=== PATIENT | female | born 1990 | race Hispanic/Latino ===

== ENCOUNTER 2025-03-22 21:13 | Emergency (ER) | payer BC, OTHER ==
[~2025-03-22] VITALS: Ht 160 cm; Wt 106.1 kg
[2025-03-22] MEDS: morPHINE 4 MG SYG IVP ONE (21:30)
[2025-03-22 21:49] LABS: BASOPHILS # (AUTO) 0.04 K/uL (0.00-0.20); BASOPHILS % (AUTO) 0.3 % (0.0-5.0); EOSINOPHILS # (AUTO) 0.09 K/uL (0.00-0.70); EOSINOPHILS % (AUTO) 0.8 % (0.0-8.0); HEMATOCRIT 34.9 % (36-48); IMMATURE GRANULOCYTE ABSOLUTE 0.04 K/uL (0-1); LYMPHOCYTES # (AUTO) 1.7 K/uL (1.0-4.8); LYMPHOCYTES % (AUTO) 14.5 % (21.0-51.0); MEAN CORPUSCULAR HEMOGLOBIN 22.7 pg (27.0-33.0); MEAN CORPUSCULAR HGB CONC 30.4 g/dL (32.0-36.0); MEAN CORPUSCULAR VOLUME 74.9 fL (79-99); MONOCYTES # (AUTO) 0.7 K/uL (0.1-1.0); MONOCYTES % (AUTO) 6.2 % (3.0-13.0); NEUTROPHILS # (AUTO) 9.2 K/uL (1.8-7.7); NEUTROPHILS % (AUTO) 77.9 % (40.0-77.0); PLATELET COUNT (AUTO) 341 K/uL (130-400); RED BLOOD CELL COUNT(AUTO) 4.66 MIL/uL (4.00-5.50); RED CELL DISTRIBUTION WIDTH 16.4 % (11.0-15.5); WHITE BLOOD COUNT (AUTO) 11.8 K/uL (4.8-10.8)
[2025-03-22 21:56] LABS: CREATININE 0.5 mg/dL (0.5-1.0); POTASSIUM 3.6 mmol/L (3.5-5.1)
[2025-03-22 22:10] LABS: APPEARANCE,URINE CLOUDY (CLEAR); BILIRUBIN,URINE NEGATIVE (NEGATIVE); COLOR,URINE YELLOW (YELLOW); GLUCOSE, URINE (UA) NEGATIVE (NEGATIVE); KETONES,URINE NEGATIVE (NEGATIVE); LEUKOCYTE ESTERASE ,URINE 250 Leu/uL (NEGATIVE); NITRATE,URINE NEGATIVE (NEGATIVE); OCCULT BLOOD,URINE SMALL (NEGATIVE); PROTEIN,URINE 30 mg/dL (NEGATIVE); UROBILINOGEN,URINE 0.2 mg/dL (0.2-1.0)
[2025-03-22 22:15] LABS: ADD UA MICROSCOPIC YES
[2025-03-22 22:18] LABS: BACTERIA,URINE RARE /HPF (None Seen); MUCUS,URINE MANY LPF (None Seen); SQUAMOUS EPITHELIAL CELL,UR MOD /HPF (0-2); WBC,URINE 26-50 /HPF (0-1)
--- NOTE | 2025-03-22 22:22 | NUR ---
ASSUMED PT CARE AT THIS TIME
[2025-03-22] MEDS ORDERED: IOHEXOL 350 MG/ML 100ML INFUS..BTL IV ONE (22:41)
[2025-03-22] MEDS: 0.9%NACL 1000ML 1,000 ML IV ONE (22:46)
[2025-03-22] MEDS: ondanSETRON 4MG INJ IVP ONE (22:46)
--- NOTE | 2025-03-22 23:22 | HMCIMG ---
US PELVIC NON-OB COMP HISTORY: No additional history given. COMPARISON: None TECHNIQUE: Transabdominal pelvic ultrasound study was performed. FINDINGS: The uterus measures 8.9 x 3.6 x 3.7 cm. The right ovary measures 4.2 x 1.3 x 2.8 cm. The left ovary measures 2.9 x 2.6 x 2.3 cm. Flow is seen in both bases. Bilateral ovarian follicles with the largest on the left measuring 1.7 cm. Endometrial thickness is 8 mm. No free fluid is seen in the cul-de-sac. Images were obtained of the right lower abdomen are limited due to overlying bowel gas. IMPRESSION: 1. No adnexal mass is seen.
--- NOTE | 2025-03-22 23:25 | HMCIMG ---
CT ABDOMEN/PELVIS W/CONTRAST HISTORY: Right lower abdominal pain COMPARISON: 10/24/2012 TECHNIQUE: Multiple sequential axial images of the abdomen and pelvis were obtained from the dome of the diaphragm through symphysis pubis. Patient was . 100 cc of Isovue through intravenous route. Oral contrast was not given. FINDINGS: No pleural effusion is seen bilaterally. There is no evidence of parenchymal disease or pulmonary nodule of the visualized lower lungs. Degenerative changes of the thoracolumbar spine are present. The heart is not enlarged. Liver measuring 18 cm. The liver, spleen, adrenal glands and pancreas are unremarkable. There is no evidence of hydronephrosis bilaterally. No evidence of renal stone is seen. Fecal material is seen in the colon. There are normal size retroperitoneal and mesenteric lymph nodes. No ascites is seen. No CT evidence of acute appendicitis is seen. Pelvic sidewalls are symmetric bilaterally. Bladder is well distended without wall thickening. IMPRESSION: 1. No acute findings. CT was performed with one or more following dose reduction techniques: automated exposure control, adjustment of the mA and kv according to patient's size, or use of a iterative reconstruction technique.
[2025-03-22] MEDS ORDERED: NITR100C4 PO (23:48)
--- NOTE | 2025-03-22 23:48 | ERN ---
ED Note History of Present Illness Stated Complaint: C/O RT LOWER ABD PAIN WITH NAUSEA Chief Complaint: Abdominal Pain Time Seen by MD: 21:19 Time Seen by Midlevel: 21:19 Dictation: The Patient is a 34-year-old female with a history of anemia who presents to the emergency department with complaints of right lower quadrant pain onset one week ago associated with nonbloody diarrhea and one episode of vomiting. Patient denies any vaginal bleeding or discharge, denies any fevers. Allergies: Coded Allergies: No Known Allergies (Unverified Allergy, Unknown, 03/22/25) Past Medical History Past Medical History: Anemia, Anxiety Surgical History: None LMP: Mar 14, 2025 RN Note Reviewed/Agreed w/PFSH: Yes Review of System Dictation Constitutional: Negative for fever,chills, and weight loss Eyes: Negative for injury, pain,redness, and discharge ENT: Negative for injury,pain or swelling Cardiovascular: Negative for chest pain, palpitations, and edema Respiratory: Negative for shortness of breath, cough, and wheezing, Abdomen/GI: Negative for constipation positive for abdominal pain, nausea, vomiting, diarrhea Back: Negative for injury and pain : Negative for injury, bleeding and discharge MS/Extremity: Negative for injury and deformity Skin: Negative for rash, and discoloration Neuro: Negative for headache, weakness, numbness, tingling, and seizure Psych: Negative for suicide ideation, homicidal ideation, and hallucinations Initial Vital Sign VS Vital Signs Date Time Temp Pulse Resp B/P (MAP) Pulse Ox O2 Delivery O2 Flow Rate FiO2 03/22/25 21:19 99.0 94 20 162/104 98 Room Air 03/22/25 22:49 0 21 Physical Exam Dictation Vital Signs reviewed General Appearance: Alert, oriented x 3, no acute distress, well developed, nourished. Head and Face: non-traumatic. Eyes: PERRL, pink conjunctivas, eyelid no trauma, anterior chamber with arcus senilis. Ears: Pinnas intact and no signs of trauma or erythema ear canals clear and no discharge TM no erythema Nose: No discharge, no bleeding. Oropharynx: Mouth normal, tongue pink. pharynx clear,no erythema, tonsils no exudates, no abscesses noted, mucous membrane moist Neck: Supple, non-tender, no thyromegaly, no masses, no JVD, no bruits Breast:Deferred Chest:No tenderness, no crepitus, no paradoxical movement, no retractions Lungs:Clear, well-ventilated, symmetric, no rales, no wheezing, no rhonchi, no stridor, good breath sounds bilaterally Heart: Regular rate, regular rhythm, no murmur, no gallops Vascular: no peripheral edema, Abdomen: Soft, positive bowel sounds, nondistended, no guarding, Right lower quadrant tenderness, no rebound, no masses no hepatomegaly, no splenomegaly, no Baugh's sign, no hernias. Rectal: Deferred Genital: Deferred Neurological: Normal speech, motor function intact, sensory function intact Musculoskeletal: Neck nontender, full range of motion, back nontender, full range of motion, Extremities: nontender, full range of motion Skin: Color pink, dry, no turgor, no rash, no lacerations, no abrasions, no contusions. Lymphatic: Deferred Results (Laboratory/Radiology) Laboratory/Radiology Laboratory Tests Test 03/22/25 21:42 03/22/25 22:01 White Blood Count 11.8 K/uL (4.8-10.8) H Red Blood Count 4.66 MIL/uL (4.00-5.50) Hemoglobin 10.6 g/dL (12.0-16.0) L Hematocrit 34.9 % (36-48) L Mean Corpuscular Volume 74.9 fL (79-99) L Mean Corpuscular Hemoglobin 22.7 pg (27.0-33.0) L Mean Corpuscular Hemoglobin Concent 30.4 g/dL (32.0-36.0) L Red Cell Distribution Width 16.4 % (11.0-15.5) H Platelet Count 341 K/uL (130-400) Mean Platelet Volume 10.6 fL (7.5-10.5) H Immature Granulocyte % (Auto) 0.3 % (0-1) Neutrophils (%) (Auto) 77.9 % (40.0-77.0) H Lymphocytes (%) (Auto) 14.5 % (21.0-51.0) L Monocytes (%) (Auto) 6.2 % (3.0-13.0) Eosinophils (%) (Auto) 0.8 % (0.0-8.0) Basophils (%) (Auto) 0.3 % (0.0-5.0) Neutrophils # (Auto) 9.2 K/uL (1.8-7.7) H Lymphocytes # (Auto) 1.7 K/uL (1.0-4.8) Monocytes # (Auto) 0.7 K/uL (0.1-1.0) Eosinophils # (Auto) 0.09 K/uL (0.00-0.70) Basophils # (Auto) 0.04 K/uL (0.00-0.20) Absolute Immature Granulocyte (auto 0.04 K/uL (0-1) Nucleated Red Blood Cells 0.0 % (0.0-0.19) Red Blood Cell Morphology See comments Sodium Level 139 mmol/L (136-145) Potassium Level 3.6 mmol/L (3.5-5.1) Chloride Level 100 mmol/L (101-111) L Carbon Dioxide Level 29 mmol/L (21-32) Blood Urea Nitrogen 7 mg/dL (7-18) Creatinine 0.5 mg/dL (0.5-1.0) Glomerular Filtration Rate Calc 128 mL/min (>90) Random Glucose 133 mg/dL (70-105) H Total Calcium 9.1 mg/dL (8.5-10.1) Serum Test, Qualitative NEGATIVE (NEGATIVE) Urine Color YELLOW (YELLOW) Urine Appearance CLOUDY (CLEAR) H Urine pH 6.0 (5.0-8.0) Urine Specific Leander 1.024 (1.001-1.031) Urine Protein 30 mg/dL (NEGATIVE) H Urine Glucose (UA) NEGATIVE mg/dL (NEGATIVE) Urine Ketones NEGATIVE mg/dL (NEGATIVE) Urine Occult Blood SMALL (NEGATIVE) H Urine Nitrate NEGATIVE (NEGATIVE) Urine Bilirubin NEGATIVE mg/dL (NEGATIVE) Urine Urobilinogen 0.2 mg/dL (0.2-1.0) Urine Leukocyte Esterase 250 Bree/uL (NEGATIVE) H Urine RBC 6-10 /HPF (0-1) H Urine WBC 26-50 /HPF (0-1) H Urine Squamous Epithelial Cells MOD /HPF (0-2) Urine Bacteria RARE /HPF (None Seen) REASON: right side pain ORDERING PHYSICIAN: SKY MCKINLEY [employer] OPERATOR PROCEDURE: PELVCOMP - US PELVIC NON-OB COMP US PELVIC NON-OB COMP HISTORY: No additional history given. COMPARISON: None TECHNIQUE: Transabdominal pelvic ultrasound study was performed. FINDINGS: The uterus measures 8.9 x 3.6 x 3.7 cm. The right ovary measures 4.2 x 1.3 x 2.8 cm. The left ovary measures 2.9 x 2.6 x 2.3 cm. Flow is seen in both bases. Bilateral ovarian follicles with the largest on the left measuring 1.7 cm. Endometrial thickness is 8 mm. No free fluid is seen in the cul-de-sac. Images were obtained of the right lower abdomen are limited due to overlying bowel gas. IMPRESSION: 1. No adnexal mass is seen. REASON: right lower quadrant abd pain ORDERING PHYSICIAN: SKY MCKINLEY PROCEDURE: ABD PEL W - CT ABDOMEN/PELVIS W/CONTRAST CT ABDOMEN/PELVIS W/CONTRAST HISTORY: Right lower abdominal pain COMPARISON: 10/24/2012 TECHNIQUE: Multiple sequential axial images of the abdomen and pelvis were obtained from the dome of the diaphragm through symphysis pubis. Patient was . 100 cc of Isovue through intravenous route. Oral contrast was not given. FINDINGS: No pleural effusion is seen bilaterally. There is no evidence of parenchymal disease or pulmonary nodule of the visualized lower lungs. Degenerative changes of the thoracolumbar spine are present. The heart is not enlarged. Liver measuring 18 cm. The liver, spleen, adrenal glands and pancreas are unremarkable. There is no evidence of hydronephrosis bilaterally. No evidence of renal stone is seen. Fecal material is seen in the colon. There are normal size retroperitoneal and mesenteric lymph nodes. No ascites is seen. No CT evidence of acute appendicitis is seen. Pelvic sidewalls are symmetric bilaterally. Bladder is well distended without wall thickening. IMPRESSION: 1. No acute findings. CT was performed with one or more following dose reduction techniques: automated exposure control, adjustment of the mA and kv according to patient's size, or use of a iterative reconstruction technique. Labs Reviewed?: Yes ED Course ED Course Orders Procedure Category Date Status Time Cbc With Differential LAB 03/22/25 Complete 21:30 Urinalysis Profile LAB 03/22/25 Complete 21:30 0.9%Nacl 1000ml (Ns PHA 03/22/25 Complete 1000ml) 21:30 Morphine 4mg Syg PHA 03/22/25 Complete (Morphine 4mg Syg) 21:30 Ondansetron 4mg Inj PHA 03/22/25 Complete (Zofran 4mg Inj) 21:30 Basic Metabolic Panel LAB 03/22/25 Complete 21:30 Us Pelvic Non-Ob Comp US 03/22/25 Resulted 21:30 Testing, LAB 03/22/25 Complete Serum Hcg 21:31 Ct Abdomen/Pelvis CT 03/22/25 Resulted W/Contrast 22:10 Culture Urine LUIS FELIPE 03/22/25 In Process 22:15 Iohexol (Omnipaque) PHA 03/22/25 Complete 22:41 Ceftriaxone 1g Vial PHA 03/23/25 In Process (Rocephine 1g Inj) 00:00 Current Medications Medications (Trade) Dose Ordered Sig/Angela Route PRN Reason Start Time Stop Time Status Last Admin Dose Admin Ceftriaxone Sodium (ROCEphine 1G INJ) 1 gm ONCE ONCE IVPB 03/23/25 00:00 03/23/25 00:01 Iohexol (Omnipaque) 35,000 mg STK-MED ONCE IV 03/22/25 22:41 03/22/25 22:41 DC Morphine Sulfate (morPHINE 4MG SYG) 4 mg ONCE ONCE IVP 03/22/25 21:30 03/22/25 21:33 DC Ondansetron HCl (zoFRAN 4MG INJ) 4 mg ONCE ONCE IVP 03/22/25 21:30 03/22/25 21:33 DC 03/22/25 22:46 Sodium Chloride 1,000 ml @ 0 mls/hr ONCE ONCE IV 03/22/25 21:30 03/22/25 21:33 DC 03/22/25 22:46 Vital Signs Date Time Temp Pulse Resp B/P (MAP) Pulse Ox O2 Delivery O2 Flow Rate FiO2 03/22/25 22:49 99.0 73 18 117/79 99 Room Air* 0 21 03/22/25 21:19 99.0 94 20 162/104 98 Room Air Medical Decision Making MDM The Patient is a 34-year-old female with a history of anemia who presents to the emergency department with complaints of right lower quadrant pain onset one week ago associated with nonbloody diarrhea and one episode of vomiting. Patient denies any vaginal bleeding or discharge, denies any fevers. CBC showed mild leukocytosis, mild microcytic anemia, chemistry showed mild hypochloremia, negative no electrolyte imbalance, urinalysis positive for leukocyte esterase. Patient will be giving a dose of Rocephin . CT abdomen and pelvis showed no acute findings, pelvic ultrasound showed no adnexal mass, positive flow to both ovaries. Patient has symptoms worse consistent with gastroenteritis and a UTI. Patient will be discharged on antibiotics. On physical exam patient is in no acute distress, stable vital signs. Labs and imaging discussed with the patient who agrees to be discharged and follow up with PCP. Differential diagnosis: Appendicitis, ovarian torsion, ovarian cyst, electrolyte imbalance, gastroenteritis Need for hospitalization: Patient does not meet criteria for hospitalization. There are no social concerns with this patient. DX & DISP Disposition: Discharge Departure Impression: Primary Impression: Gastroenteritis Additional Impressions: UTI (urinary tract infection), Abdominal pain Condition: Stable Scripts Nitrofurantoin Monohyd/M-Cryst (Macrobid 100 mg Capsule) 100 Mg Capsule 1 CAP PO BID for 5 Days, #10 CAP 0 Refills Prov: SKY MCKINLEY 03/22/25 Additional Instructions: Please follow up with the primary doctor in 1-2 days. Take your medications as prescribed and until finished. If symptoms worsen please return to ER. Follow up with your urine cultures. FOLLOW-UP WITH PRIMARY CARE PROVIDER IN 1 TO 2 DAYS. TAKE MEDICATIONS DIRECTED HERE IN THE EMERGENCY ROOM. OKAY TO CONTINUE HOME MEDICATIONS UNLESS OTHERWISE DISCUSSED DURING YOUR VISIT IN THE EMERGENCY ROOM TODAY. RETURN TO YOUR NEAREST EMERGENCY ROOM IF SYMPTOMS WORSEN OR IF THERE IS NO IMPROVEMENT. CALL 911 IF YOU NEED IMMEDIATE ASSISTANCE. TAKE TYLENOL OR MOTRIN [id number] NEEDED AND IF NO CONTRAINDICATIONS ARE PRESENT. INCREASE ORAL HYDRATION. A WOUND CULTURE OR URINE CULTURE WAS ORDERED HERE IN THE EMERGENCY ROOM DEPARTMENT PLEASE FOLLOW-UP WITH PRIMARY CARE PROVIDER AND ADVISE THEM TO GET REPEAT PORTS FROM OUR FACILITY. IF YOU HAD ANY VITALY WRAP/SPLINTS THAT WERE APPLIED HERE, PLEASE DO NOT REMOVE THEM UNTIL YOU SEE YOUR PRIMARY CARE OR SPECIALTY. Referrals: SELF,REFERRAL (PCP) Time of Disposition: 23:47 I have reviewed the case, and I agree with, Diagnosis and Plan SKY MCKINLEY Mar 22, 2025 23:48
[2025-03-23] MEDS: cefTRIAXone 1G VIAL IVPB ONE (00:13)
[2025-03-23 00:56] VITALS: BP 122/65; PULSE 72; RESP 18; TEMP 98.7; O2SAT 98
== END 2025-03-23 00:57 | disposition home or self-care (01) ==
LOC: EDH 21:13
DX: K52.9 Noninfective gastroenteritis and colitis, unspecified (principal); N39.0 Urinary tract infection, site not specified; F41.9 Anxiety disorder, unspecified
CPT/HCPCS: 99285; 74177; 96365; 76856; 96361; 96375; 80048; 84703; 85025; 87086; 81001; 36415; J7030; J0696; J2405; Q9967; J2270